=== PATIENT | male | born 1955 | race African-American/Black ===

== ENCOUNTER 2017-12-08 14:26 | Inpatient (IN) | payer MEDICARE ==
--- NOTE | ~2017-12-08 | RHP ---
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 He has got a past medical history of Crohn disease and peripheral neuropathy. Transferred to [facility] from [facility] for higher level of treatment of sepsis and pneumonia, status post right colectomy performed in August 2017. The patient states he has been hospitalized for the past 3 months. He is frail, weak, fatigued, and has decreased breath sounds and wheezes bilaterally. He has right lower quadrant ostomy with dark green liquid output. He has physical signs of malnutrition, temporal wasting, muscle and fat loss around the clavicle, scapula, and triceps. He has got severe protein malnutrition due to decreased appetite and suboptimal oral intake secondary to suspected prior hospitalizations secondary to dysphagia. Modified barium swallow showed signs of tracheal aspiration secondary to severe profound pharyngeal dysphagia. N.p.o. was recommended until a PEG tube could be placed for nutritional needs. Surgery was consulted on 12/06. The PEG tube was placed without difficulty. He has been started on continuous tube feedings of Jevity 1.2 yaneli per 240 cc at 25 cc to be titrated to 10 cc every 6 hours to a goal rate of 55 cc an hour. He is currently at 50 cc an hour and tolerating without difficulty. He was independent with ADLs and mobility prior his hospitalization in August. He has had a prolonged immobility, progressive generalized weakness especially in the lower extremities affecting his tolerance to PT. He is very fatigued with limited flexion and extension of lower extremities. Proximal muscle weakness is noted. He is rgelfawn-ss-oly assist for ADLs, eufjdnll-oh-ekp assist for nsk-lh-eohip and ijq-xx-yuhvg. He is motivated to begin inpatient therapy so he can may be return back to home there in [facility]. Comorbidities include sepsis, pneumonia, dysphagia, hypoglycemia, uncontrolled diabetes, hypotension, Crohn disease, severe protein-calorie malnutrition with dysphagia, anemia of chronic disease, decubitus ulcers, weakness, fatigue, status post colectomy, home O2 dependence, hypertension, functional deficits, and depression. PAST MEDICAL HISTORY: Significant for dysphagia, pneumonia, home O2 dependence, depression. PAST SURGICAL HISTORY: Includes colostomy, gallbladder surgery, and PEG placement. ALLERGIES: No known drug allergies. CURRENT MEDICATIONS: He is on a ferrous sulfate elixir. He is on psyllium fiber 1 packet daily, Protonix 40 mg daily, Marinol 2.5 mg daily, trazodone 50 HISTORY AND PHYSICAL [id number] CRISTINO HOPSON L mg at bedtime, oxycodone 5/325 one tab every 6 hours p.r.n., Zofran p.r.n. nausea and vomiting, triamterene 10 mg b.i.d., Imodium solution as needed. He is on Robitussin per PEG 10 cc every 6 hours, Neurontin 400 mg t.i.d., and Tylenol 325 every 4 hours p.r.n. HABITS: No current alcohol or tobacco use. FAMILY HISTORY: Noncontributory. SOCIAL HISTORY: The patient hopes to return back home and get back to his prior level of functioning. REVIEW OF SYSTEMS: GENERAL: Does complain of weakness and fatigue. HEENT: Denies cold, cough, or congestion. CARDIOVASCULAR: Denies chest pain. PHYSICAL EXAMINATION: VITAL SIGNS: Stable, afebrile. GENERAL: A thin gentleman, in no acute distress upon exam. HEENT: Normocephalic and atraumatic. Mucosa moist. NECK: Supple. No lymphadenopathy. LUNGS: Clear at this time. HEART: Regular rate and rhythm. ABDOMEN: Soft. He does have a PEG and a right lower quadrant drain and ostomy. NEUROLOGIC: Seems intact. LABORATORY DATA: White count is 8.9, H&H of 12 and 38, and platelet count of 251. Sodium is 132, potassium 4.7, BUN and creatinine of 12 and 1.1, and blood sugar was noted to be 97. 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 The patient has potential to make improvement. We will institute the following multidisciplinary therapies including, but not limited to physical, occupational, respiratory, speech, nutritional services, prosthetics and orthotics. Given his complex condition and risk for more complications, rehabilitation services cannot be provided at a low level of care such as a jail facility. PLAN: 1. Admit to [facility] for intensive inpatient therapy to include the following disciplines: A. Physical therapy to improve gait, all transfer skills and bed mobility to a modified independent level. B. Occupational therapy to improve activities of daily living to a modified independent level. C. Case management to assist with discharge planning and placement options. D. Nutrition to assist with nutritional needs. E. Rehabilitation nursing to assist in monitoring the patient's underlying medical conditions and to assist with any type of bowel or bladder management. 2. The patient's current medication and medical care will be continued. 3. The patient will be placed on standard fall precautions. 4. We will watch his blood pressure closely. He has got a history of hypotension. Make sure that his white count remains stable. We see no signs of HISTORY AND PHYSICAL [id number] CRISTINO HOPSON sepsis or aspiration pneumonia. 5. We will follow this patient up on Monday morning or earlier if necessary. TRANSINT:[id number] Voice Confirmation ID: [id number] DOCUMENT ID: [id number] TIFF notes whether there has been none or any medical/functional change since admission: - No change since preadmission screen. TIFF attests patient continues to be appropriate for IRF: - Continues to be appropriate. YAHAIRA GONZÁLES MD at 1739 CC: [id number] DICTATION DATE: 12/09/17 1204 BEDSPREAD FOLDER: 12/09/17 1240 ADM IN [place] [id number] [place] [address]
--- NOTE | ~2017-12-08 | DS ---
PATIENT:CRISTINO HOPSON :53 MEDICAL RECORD: [id number] DISCHARGE SUMMARY ADMISSION DATE: 12/08/17 DISCHARGE DATE: 12/26/17 This is a discharge dated 12/26/2017 from inpatient rehab. PRIMARY DIAGNOSIS: Decreased functional ability and ability to provide activities of daily living secondary to diffuse myopathy, status post prolonged hospitalization with sepsis. SECONDARY DIAGNOSES: 1. Crohn's disease. 2. Protein-calorie malnutrition. 3. Peripheral neuropathy. 4. Status post colostomy. 5. Dysphagia. 6. PEG tube for nutritional support. 7. Chronic hypoxic respiratory failure. 8. Depression. 9. Diabetes. 10. Hypotension. 11. Anemia of chronic disease. 12. Decubitus ulcers. 13. Leukocytosis. 14. Hyponatremia. 15. Hyperkalemia. HOSPITAL COURSE: Full H&P is located elsewhere on the chart on this 62-year-old male who was admitted to inpatient rehab for physical therapy and occupational therapy to improve gait, transfer skills, bed mobility, and activities of daily living to a modified independent level. He was evaluated by PT and OT and their plans of care were followed. He required group home care for observation and assessment, medication administration, as well as wound care of decubitus ulcers. Electrolytes were managed by protocol. Fingerstick blood sugars were monitored throughout his hospital stay with appropriate adjustment in medications as needed. He was on supplemental oxygen to keep sats greater than 90%. He remained on appropriate home medications. He had tube feed via PEG for nutritional support. He was cooperative with therapies with some progress towards goals. He had increasing leukocytosis with positive cultures from his PEG site with Klebsiella pneumoniae and Enterococcus faecium and faecalis. He was started on antibiotics. He had worsening hypotension and was transferred to the acute facility due to change in status and sepsis. DISCHARGE MEDICATIONS: As per discharge medication reconciliation. DISCHARGE DISPOSITION: The patient is discharged to the acute care hospital for higher level of care. He will follow with primary care specialists in that facility and he will continue current nutrition and level of activity. At least 30 minutes was spent in this discharge activity. TRANSINT:[id number] Voice Confirmation ID: [id number] DOCUMENT ID: [id number] Dictated By: JOANNA DOTSON DISCHARGE SUMMARY REPORT [id number] CRISTINO HOPSON I have interviewed/examined the above patient and agree with these documented findings. YAHAIRA GONZÁLES MD at 1139 at 1039 CC: [id number] DICTATION DATE: 01/21/[address] MAGISTRATE: 01/22/18 0342 DIS IN 12/26/17 [place] [id number] [place] [id number]
[~2017-12-08 14:26] MED LIST: ACETAMINOPHEN325 MG PO; CEFTRIAXONE1 G/VIAL IM; CENTRUM SILVER1 TA1 PO; CORTEF10 MG PO; FERROUS SULFAT325 MG PO; LOPERAMIDE HCL2 MG PO; MARINOL2.5 MG PO; METAMUCIL PACKE1 PKT PO; MIDODRINE HCL10 MG PO; MORPHINE 44 MG/1 M1 IV; NEURONTIN800 MG PO; ONDANSETRON4 MG/2 M3 IV; PERCOCET 5-3251 TAB PO; PROTONIX40 MG PO; ROBITUSSIN DM 110 ML PO; TRAZODONE HCL50 MG PO; ZITHROMAX 500M500 MG IV
[2017-12-08 17:22] VITALS: BP 83/53; BMI 14.2
[2017-12-08 19:00] VITALS: BP 70/47
[2017-12-09 05:30] LABS: BASOPHILS 0.2 % (0-2); EOSINOPHILS 0.6 % (0-7); HEMATOCRIT 38.3 % (42.0-54.0); HEMOGLOBIN 12.3 g/dL (13.5-17.5); IMMATURE GRANULOCYTES 0.3 % (0-5); LYMPHOCYTES 17.7 % (15-50); MCH 29.1 pg (26.0-34.0); MCHC 32.1 g/dL (31.0-37.0); MCV 90.8 fL (80.0-100.0); MEAN PLATELET VOLUME 9.5 fL (7.4-10.4); MONOCYTES 7.5 % (2-11); NEUTROPHILS 73.7 % (40-80); PLATELET COUNT 251 10x3/uL (130-400); RBC 4.22 10x6/uL (4.20-6.10); RDW 16.3 % (11.5-14.5); WBC 8.9 10x3/uL (4.8-10.8)
[2017-12-09 05:44] LABS: ANION GAP 14.5 mmol/L (8-16); CALCIUM 8.8 mg/dL (8.5-10.1); CARBON DIOXIDE 18.2 mmol/L (21.0-32.0); CREATININE - SERUM 1.1 mg/dL (0.6-1.3); POTASSIUM - SERUM 4.7 mmol/L (3.5-5.1)
[2017-12-09 08:00] VITALS: BP 070/051
[2017-12-09 12:32] VITALS: BMI 14.2
[2017-12-09 19:35] VITALS: BP 80/57
[2017-12-10 06:35] VITALS: BP 80/57
[2017-12-10 08:54] VITALS: BP 97/60
[2017-12-10 22:44] VITALS: BP 89/62
[2017-12-11 06:26] LABS: BASOPHILS 0.8 % (0-2); EOSINOPHILS 0.9 % (0-7); HEMATOCRIT 41.8 % (42.0-54.0); HEMOGLOBIN 13.6 g/dL (13.5-17.5); IMMATURE GRANULOCYTES 0.2 % (0-5); LYMPHOCYTES 23.1 % (15-50); MCH 29.5 pg (26.0-34.0); MCHC 32.5 g/dL (31.0-37.0); MCV 90.7 fL (80.0-100.0); MEAN PLATELET VOLUME 9.9 fL (7.4-10.4); MONOCYTES 10.6 % (2-11); NEUTROPHILS 64.4 % (40-80); PLATELET COUNT 287 10x3/uL (130-400); RBC 4.61 10x6/uL (4.20-6.10); RDW 16.3 % (11.5-14.5); WBC 8.6 10x3/uL (4.8-10.8)
[2017-12-11 06:59] LABS: ANION GAP 16.9 mmol/L (8-16); CALCIUM 9.3 mg/dL (8.5-10.1); CARBON DIOXIDE 15.8 mmol/L (21.0-32.0); CREATININE - SERUM 1.5 mg/dL (0.6-1.3); POTASSIUM - SERUM 5.7 mmol/L (3.5-5.1)
[2017-12-11 08:00] VITALS: BP 83/56
[2017-12-11 20:00] VITALS: BP 90/60
[2017-12-12 06:17] LABS: CALCIUM 9.7 mg/dL (8.5-10.1); CARBON DIOXIDE 14.5 mmol/L (21.0-32.0); CREATININE - SERUM 1.5 mg/dL (0.6-1.3)
[2017-12-12 06:18] LABS: ANION GAP 17.5 mmol/L (8-16)
[2017-12-12 08:00] VITALS: BP 82/54
[2017-12-12 19:30] VITALS: BP 80/50
[2017-12-13 06:13] LABS: CALCIUM 10.1 mg/dL (8.5-10.1); CREATININE - SERUM 1.5 mg/dL (0.6-1.3); MAGNESIUM - SERUM 1.5 mg/dL (1.8-2.4); PHOSPHOROUS 3.1 mg/dL (2.5-4.9)
[2017-12-13 08:33] VITALS: BP 73/53
[2017-12-13 22:09] VITALS: BP 75/48
[2017-12-14 06:48] LABS: CALCIUM 9.4 mg/dL (8.5-10.1); CARBON DIOXIDE 14.7 mmol/L (21.0-32.0); CREATININE - SERUM 1.3 mg/dL (0.6-1.3)
[2017-12-14 06:49] LABS: ANION GAP 17.1 mmol/L (8-16); POTASSIUM - SERUM 5.8 mmol/L (3.5-5.1)
[2017-12-14 08:00] VITALS: BP 68/46
[2017-12-14 10:57] VITALS: BP 65/46
[2017-12-14 13:17] VITALS: BP 69/40
[2017-12-14 22:05] VITALS: BP 79/55
[2017-12-15 08:33] VITALS: BP 72/42
[2017-12-15 13:11] LABS: ANION GAP 20.2 mmol/L (8-16); CALCIUM 9.8 mg/dL (8.5-10.1); CARBON DIOXIDE 15.7 mmol/L (21.0-32.0); CREATININE - SERUM 1.9 mg/dL (0.6-1.3); POTASSIUM - SERUM 5.9 mmol/L (3.5-5.1)
[2017-12-16 02:36] VITALS: BP 67/44
[2017-12-16 14:26] VITALS: BP 73/49
[2017-12-17 00:10] VITALS: BP 102/60
[2017-12-17 08:35] VITALS: BP 60/40
[2017-12-17 19:00] VITALS: BP 69/47
[2017-12-18 06:06] LABS: BASOPHILS 0.2 % (0-2); EOSINOPHILS 0.3 % (0-7); HEMATOCRIT 34.7 % (42.0-54.0); HEMOGLOBIN 11.8 g/dL (13.5-17.5); IMMATURE GRANULOCYTES 0.5 % (0-5); LYMPHOCYTES 8.4 % (15-50); MCH 29.1 pg (26.0-34.0); MCV 85.7 fL (80.0-100.0); MEAN PLATELET VOLUME 10.2 fL (7.4-10.4); MONOCYTES 9.5 % (2-11); NEUTROPHILS 81.1 % (40-80); PLATELET COUNT 245 10x3/uL (130-400); RBC 4.05 10x6/uL (4.20-6.10); RDW 16.1 % (11.5-14.5); WBC 17.5 10x3/uL (4.8-10.8)
[2017-12-18 06:11] LABS: ANION GAP 18.6 mmol/L (8-16); CALCIUM 8.4 mg/dL (8.5-10.1); CARBON DIOXIDE 15.5 mmol/L (21.0-32.0); CREATININE - SERUM 2.4 mg/dL (0.6-1.3); POTASSIUM - SERUM 4.1 mmol/L (3.5-5.1)
[2017-12-18 08:00] VITALS: BP 144/73; BP 66/42
[2017-12-18 19:10] VITALS: BP 70/44
[2017-12-18 20:24] LABS: APPEARANCE CLEAR (CLEAR); BILIRUBIN NEGATIVE (NEGATIVE); COLOR YELLOW (YELLOW); GLUCOSE NEGATIVE (NEGATIVE); KETONE NEGATIVE (NEGATIVE); NITRITE NEGATIVE (NEGATIVE); PROTEIN TRACE mg/dL (NEGATIVE); SPECIFIC GRAVITY 1.015 (1.005-1.020); UROBILINOGEN NORMAL (NORMAL)
[2017-12-18 20:26] LABS: BACTERIA MODERATE /hpf (NONE SEEN); EPITHELIAL CELLS 0-5 /hpf (0-5); RED CELLS - URINE OCC /hpf (0-5); WHITE CELLS - URINE 25-50 /hpf (0-5); YEAST >1+ WITH HYPHAE /hpf (NONE SEEN)
[2017-12-18 20:27] LABS: HYALINE CAST OCC /lpf (NONE SEEN)
[2017-12-19 08:16] VITALS: BP 81/52
[2017-12-19 19:15] VITALS: BP 66/39
[2017-12-20 08:07] VITALS: BP 72/40
[2017-12-20 18:59] VITALS: BP 137/52; BP 72/48
[2017-12-21 06:17] LABS: BASOPHILS 0.3 % (0-2); EOSINOPHILS 0.8 % (0-7); HEMATOCRIT 31.6 % (42.0-54.0); HEMOGLOBIN 10.4 g/dL (13.5-17.5); IMMATURE GRANULOCYTES 0.4 % (0-5); LYMPHOCYTES 11.5 % (15-50); MCH 29.1 pg (26.0-34.0); MCHC 32.9 g/dL (31.0-37.0); MCV 88.5 fL (80.0-100.0); MEAN PLATELET VOLUME 10.2 fL (7.4-10.4); MONOCYTES 8.7 % (2-11); NEUTROPHILS 78.3 % (40-80); PLATELET COUNT 255 10x3/uL (130-400); RBC 3.57 10x6/uL (4.20-6.10); RDW 16.3 % (11.5-14.5); WBC 14.6 10x3/uL (4.8-10.8)
[2017-12-21 07:17] LABS: CALC OSMOLALITY 262 mosm/kg (275-300); CALCIUM 8.5 mg/dL (8.5-10.1); CHLORIDE - SERUM 104 mmol/L (98-107); GLUCOSE 89 mg/dL (74-106); POTASSIUM - SERUM 3.2 mmol/L (3.5-5.1); SODIUM 130 mmol/L (136-145); UREA NITROGEN 20 mg/dL (7-18); eGFR NON AFRICAN AMERICAN 80 mL/min (90-120)
[2017-12-21 08:00] VITALS: BP 76/52
[2017-12-21 22:09] VITALS: BP 78/48
[2017-12-22 08:29] VITALS: BP 74/50
[2017-12-22 20:00] VITALS: BP 73/51
[2017-12-23 07:53] VITALS: BP 63/42
[2017-12-23 07:55] VITALS: BP 63/72
[2017-12-23 19:45] VITALS: BP 58/40
[2017-12-24 12:16] VITALS: BP 73/55
[2017-12-24 20:30] VITALS: BP 79/58
[2017-12-25 05:21] LABS: HEMATOCRIT 36.2 % (42.0-54.0); HEMOGLOBIN 12.1 g/dL (13.5-17.5); MCH 29.2 pg (26.0-34.0); MCHC 33.4 g/dL (31.0-37.0); MCV 87.4 fL (80.0-100.0); MEAN PLATELET VOLUME 9.9 fL (7.4-10.4); PLATELET COUNT 349 10x3/uL (130-400); RBC 4.14 10x6/uL (4.20-6.10); RDW 15.9 % (11.5-14.5); WBC 21.8 10x3/uL (4.8-10.8)
[2017-12-25 05:24] LABS: EOSINOPHILS 1 % (0-7); LYMPHOCYTES 14 % (15-50); MONOCYTES 11 % (2-11); NEUTROPHILS 68 % (40-80); PLATELET ESTIMATE NORMAL
[2017-12-25 05:34] LABS: ANION GAP 17.7 mmol/L (8-16); CALCIUM 10.1 mg/dL (8.5-10.1); CARBON DIOXIDE 13.2 mmol/L (21.0-32.0); CREATININE - SERUM 1.5 mg/dL (0.6-1.3); POTASSIUM - SERUM 3.9 mmol/L (3.5-5.1)
[2017-12-25] MEDS ORDERED: BACTRIM DS TABL1 TAB PO (08:24)
[2017-12-25 09:57] VITALS: BP 79/55
[2017-12-25 19:00] VITALS: BP 77/52
[2017-12-26 06:47] LABS: BASOPHILS 0 % (0-2); CALCIUM 10.1 mg/dL (8.5-10.1); EOSINOPHILS 0.1 % (0-7); HEMATOCRIT 36.1 % (42.0-54.0); HEMOGLOBIN 12.5 g/dL (13.5-17.5); IMMATURE GRANULOCYTES 0.6 % (0-5); MCH 29.7 pg (26.0-34.0); MCHC 34.6 g/dL (31.0-37.0); MCV 85.7 fL (80.0-100.0); MONOCYTES 5.3 % (2-11); PLATELET COUNT 383 10x3/uL (130-400); POTASSIUM - SERUM 3.9 mmol/L (3.5-5.1); RBC 4.21 10x6/uL (4.20-6.10); RDW 15.6 % (11.5-14.5); WBC 28.7 10x3/uL (4.8-10.8)
[2017-12-26 06:58] LABS: ANION GAP 21.8 mmol/L (8-16); CREATININE - SERUM 2.1 mg/dL (0.6-1.3)
[2017-12-26 06:59] LABS: CARBON DIOXIDE 6.1 mmol/L (21.0-32.0)
[2017-12-26] MEDS ORDERED: THERMOTABS 1 GM1 GM PO (08:01)
[2017-12-26 11:52] VITALS: BP 67/52
== END 2017-12-26 19:24 | disposition short-term general hospital (02) | DRG 91 ==
LOC: D.REHAB 14:26
PROVIDERS: Emergency Medicine
DX: G72.89 Other specified myopathies (principal); A41.9 Sepsis, unspecified organism; J18.9 Pneumonia, unspecified organism; E43 Unspecified severe protein-calorie malnutrition; K50.90 Crohn's disease, unspecified, without complications; R13.13 Dysphagia, pharyngeal phase; E11.649 Type 2 diabetes mellitus with hypoglycemia without coma; I95.9 Hypotension, unspecified; D64.9 Anemia, unspecified; I10 Essential (primary) hypertension; Z99.81 Dependence on supplemental oxygen; R53.1 Weakness; R53.83 Other fatigue; F32.9 Major depressive disorder, single episode, unspecified; L89.90 Pressure ulcer of unspecified site, unspecified stage

== ENCOUNTER 2017-12-26 19:25 | Inpatient (IN) | payer MEDICARE ==
[~2017-12-26] VITALS: Ht 185.4 cm; Wt 45.5 kg
--- NOTE | ~2017-12-26 | PN ---
PATIENT:CRISTINO HOPSON MEDICAL RECORD: [id number] LOCATION:[facility] ADMISSION DATE: 12/26/17 PROGRESS NOTE DATE OF SERVICE: 01/20/2018 PROGRESS NOTE ADDENDUM CHIEF COMPLAINT: Pain. The patient states he is having more abdominal pain. It is band-like pain in the upper abdomen. He states it hurts to breathe. He is tender in the upper abdomen. I am going to obtain a chest x-ray. Yesterday, it looked like the amount of free air was decreasing. I am trying to manage him nonoperatively. If his free air is increasing and/or his condition is deteriorating, then I will be forced into an operation. This likely would not be a laparoscopic washout with placement of drains. White count today is 13.9; however, he does not have a left shift. He is afebrile. Of course, some of the inflammatory response may be blunted due to IV steroids. This is a progress note addendum. For the typed portion of the progress note, please see the chart. Palpation aggravates. Nothing alleviates. He describes these symptoms as severe. For the past medical and surgical history, current medications, allergies, social history as well as family history, please see the chart. REVIEW OF SYSTEMS: Positive for some nausea. He also had some retching. No fever, no chills. Positive for abdominal pain. Positive for dyspnea. Positive for anxiety. Review of systems is negative other than as is described above. PHYSICAL EXAMINATION: GENERAL: The patient appears acutely ill. He also appears chronically ill. VITAL SIGNS: Reviewed. EARS: External ears appear normal. EYES: Extraocular movements are intact. NECK: Trachea is midline. CHEST: No intercostal retractions. PULMONARY: Mildly labored intercostal retractions are present. No stridor. ABDOMEN: As described above. There is peritonitis to percussion in the upper abdomen. EXTREMITIES: Peripheral cyanosis is not present. INTEGUMENT: There is a sacral decubitus ulcer. PSYCHIATRIC: Anxious affect. NEUROLOGIC: Answers questions appropriately. BACK: Mild thoracic kyphosis is present. IMPRESSION: Pneumoperitoneum with an elevated white count, which the patient has had during his hospitalization. No fever. He has some intermittent tachycardia. I am trying to manage his pneumoperitoneum nonoperatively, it is appearing that this is going to be less likely. PLAN: Continue IV antibiotics, serial abdominal examinations, G-tube to gravity PROGRESS NOTE [id number] CRISTINO HOPSON drainage, TPN. I will order some labs for tomorrow as well. TRANSINT:[id number] Voice Confirmation ID: [id number] DOCUMENT ID: [id number] MEMO CISNEROS MD at 1042 CC: [id number] DICTATION DATE: 01/20/18 1324 BLASTING ENTRYMAN: 01/20/18 1353 ADM IN [place] [id number] [place] [id number]
--- NOTE | ~2017-12-26 | CN ---
PATIENT NAME:CRISTINO HOPSON MEDICAL RECORD: [id number] : 53 LOCATION:[facility] ADMIT DATE: 12/26/17 ACCOUNT: [id number] CONSULTING PHYSICIAN: MEMO CISNEROS MD REFERRING PHYSICIAN: JENY VIRAMONTES MD DATE OF CONSULTATION: 01/18/2018 CHIEF COMPLAINT: Pneumoperitoneum. HISTORY OF PRESENT ILLNESS: This is a man who was transferred from [facility] after undergoing a right hemicolectomy for Crohn's disease. The patient has a right lower quadrant ostomy, which is functioning. He was found to have a large pneumoperitoneum today. Despite the large pneumoperitoneum, he really does not appear to be anymore acutely ill than he has been. The patient has been on IV steroids and I wonder if the pneumoperitoneum might not be due to a perforated duodenal ulcer. I have spoken to his primary care team. We are going to place him on a Protonix drip. We are going to see about weaning his steroids down as well. His abdomen is distended and tympanitic. He is tender in the upper abdomen. No pain with percussion and therefore I do not think that he has peritonitis at this time. Of course, the steroids could be blunting any type of inflammatory affect. Palpation aggravates. Nothing alleviates. His symptoms are mild in intensity. This is a consultation note addendum. Dr. Bonilla has seen this patient previously during this hospitalization and has seen him for a different problem. For the typed portion of the consult note, please see the chart. This will include the past medical and surgical history, current medications, allergies, social history as well as family history. REVIEW OF SYSTEMS: No nausea, no vomiting, no fever, no chills. Positive for abdominal pain. No shortness of breath. No chest pain. No headache. The review of systems is negative other than as is described above. PHYSICAL EXAMINATION: GENERAL: The patient does appear acutely ill, also appears chronically ill. VITAL SIGNS: Reviewed. EARS: External ears appear normal. EYES: Extraocular movements are intact. NECK: Trachea is midline. CHEST: No intercostal retractions. PULMONARY: Mildly labored. No stridor. ABDOMEN: As described above. PSYCHIATRIC: Anxious affect. NEUROLOGIC: Nonfocal, no lethargy. The patient answers questions appropriately and moves all extremities well. BACK: Mild thoracic kyphosis. LYMPHATICS: No lymphangitic streaking of the exposed extremities. INTEGUMENT: There is a sacral decubitus ulcer. IMPRESSION: Pneumoperitoneum of uncertain etiology. PLAN: I am going to try to manage this patient's pneumoperitoneum nonoperatively. If he does require an operation, I am not sure he would do well CONSULT REPORT [id number] CRISTINO HOPSON with a very large operation due to generalized weakness and frailty. An operative intervention would likely include a laparoscopy, washout with placement of drains. If a perforated duodenal ulcer is identified, then a Matt patch would be placed as well. The patient may be sicker than he appears and the inflammatory process may be blunted by steroids. I spoke to his primary care team and we are going to see if we can begin tapering down the steroids. I will be performing daily abdominal examinations on him and if he becomes acutely ill, than I will be forced to recommend an operative procedure. TRANSINT:[id number] Voice Confirmation ID: [id number] DOCUMENT ID: [id number] MEMO CISNEROS MD at 1042 CC: [id number] DICTATION DATE: 01/20/18 1336 SAWDUST MACHINE OPERATOR: 01/20/18 1402 ADM IN [facility] [address] [place] [id number]
--- NOTE | ~2017-12-26 | PN ---
PATIENT:CRISTINO HOPSON MEDICAL RECORD: [id number] LOCATION:[facility] ADMISSION DATE: 12/26/17 PROGRESS NOTE DATE OF SERVICE: 01/19/2018 CHIEF COMPLAINT: Pain. I think on today's x-rays, he may have a little less free air than he did yesterday. No nausea. No fever. He is complaining of abdominal pain. He states it is not much better, not much worse than yesterday. This is band-like upper abdominal pain. He is tender in the upper abdomen. No peritonitis to percussion. Palpation aggravates. Nothing alleviates. He describes his symptoms as moderate. This is a progress note addendum. For the typed portion of the progress note, please see the chart. This would include the past medical and surgical history, current medications, allergies, social history as well as family history. REVIEW OF SYSTEMS: No nausea, no vomiting, no fever, no chills. Positive for abdominal pain. No chest pain. The review of systems is negative other than as is described above. PHYSICAL EXAMINATION: GENERAL: The patient does appear acutely ill. Also appears chronically ill. VITAL SIGNS: Reviewed. EARS: External ears appear normal. EYES: Extraocular movements are intact. NECK: Trachea is midline. CHEST: No intercostal retractions. PULMONARY: Nonlabored. No stridor. ABDOMEN: As described above. PSYCHIATRIC: Anxious affect. NEUROLOGIC: Answers questions appropriately. INTEGUMENT: There is a sacral decubitus ulcer. BACK: Mild thoracic kyphosis is present. LYMPHATIC: No lymphangitic streaking of the exposed extremities. IMPRESSION: Pneumoperitoneum. PLAN: I am going to try to continue to manage this nonoperatively with n.p.o., TPN, serial abdominal examinations, and IV antibiotics. TRANSINT:[id number] Voice Confirmation ID: [id number] DOCUMENT ID: [id number] PROGRESS NOTE [id number] CRISTINO HOPSON ROBERT MD at 1042 CC: [id number] DICTATION DATE: 01/20/18 1329 SEWING TEACHER: 01/20/18 1407 ADM IN [place] [id number] [place] [address]
[~2017-12-26 19:25] MED LIST changes: +BACTRIM DS TABL1 TAB PO; +THERMOTABS 1 GM1 GM PO
[2017-12-27 04:00] VITALS: BP 77/50
[2017-12-27 04:37] VITALS: BP 80/53; BMI 14.2
[2017-12-27 12:18] VITALS: BMI 14.2
[2017-12-27 12:50] VITALS: BP 75/49
[2017-12-27 16:13] VITALS: BP 67/41
[2017-12-27 20:00] VITALS: BP 71/45
[2017-12-28] VITALS (43 sets, daily range): BP systolic 64–111; BP diastolic 40–69
[2017-12-28 07:19] LABS: BASOPHILS 0.1 % (0-2); EOSINOPHILS 0 % (0-7); HEMATOCRIT 33.8 % (42.0-54.0); HEMOGLOBIN 11.8 g/dL (13.5-17.5); LYMPHOCYTES 2.3 % (15-50); MCH 29.3 pg (26.0-34.0); MCHC 34.9 g/dL (31.0-37.0); MCV 83.9 fL (80.0-100.0); MONOCYTES 2.9 % (2-11); NEUTROPHILS 93.7 % (40-80); PLATELET COUNT 236 10x3/uL (130-400); RBC 4.03 10x6/uL (4.20-6.10); RDW 15.2 % (11.5-14.5); WBC 47.4 10x3/uL (4.8-10.8)
[2017-12-28 07:30] LABS: CALCIUM 9.4 mg/dL (8.5-10.1); CREATININE - SERUM 3.2 mg/dL (0.6-1.3)
[2017-12-28 07:36] LABS: ANION GAP 19.1 mmol/L (8-16); CARBON DIOXIDE 9.9 mmol/L (21.0-32.0)
[2017-12-28 08:23] LABS: CREATININE - SERUM 3.1 mg/dL (0.6-1.3); POTASSIUM - SERUM 4.4 mmol/L (3.5-5.1)
[2017-12-28 08:27] LABS: ANION GAP 20.4 mmol/L (8-16)
[2017-12-28 10:56] LABS: APPEARANCE TURBID (CLEAR); COLOR YELLOW (YELLOW); SPECIFIC GRAVITY 1.015 (1.005-1.020)
[2017-12-28 10:57] LABS: BILIRUBIN NEGATIVE (NEGATIVE); GLUCOSE NEGATIVE (NEGATIVE); KETONE NEGATIVE (NEGATIVE); NITRITE NEGATIVE (NEGATIVE); PROTEIN 2+ mg/dL (NEGATIVE); UROBILINOGEN NORMAL (NORMAL)
[2017-12-28 11:01] LABS: BACTERIA MODERATE /hpf (NONE SEEN); EPITHELIAL CELLS 0-5 /hpf (0-5); RED CELLS - URINE 0-5 /hpf (0-5); WHITE CELLS - URINE >50 /hpf (0-5)
[2017-12-28 11:02] LABS: GRANULAR CAST OCC /lpf (NONE SEEN); MUCUS <1+ /lpf (NONE SEEN); YEAST >1+ WITH HYPHAE /hpf (NONE SEEN)
[2017-12-29] VITALS (50 sets, daily range): BP systolic 76–131; BP diastolic 50–78
[2017-12-29 07:53] LABS: BASOPHILS 0 % (0-2); EOSINOPHILS 0 % (0-7); HEMATOCRIT 29.9 % (42.0-54.0); HEMOGLOBIN 10.6 g/dL (13.5-17.5); IMMATURE GRANULOCYTES 0.6 % (0-5); LYMPHOCYTES 3.6 % (15-50); MCH 29.2 pg (26.0-34.0); MCHC 35.5 g/dL (31.0-37.0); MCV 82.4 fL (80.0-100.0); MEAN PLATELET VOLUME 8.8 fL (7.4-10.4); MONOCYTES 3.6 % (2-11); NEUTROPHILS 92.2 % (40-80); PLATELET COUNT 250 10x3/uL (130-400); RBC 3.63 10x6/uL (4.20-6.10); RDW 15.1 % (11.5-14.5); WBC 29.8 10x3/uL (4.8-10.8)
[2017-12-29 08:02] LABS: BILIRUBIN - TOTAL 0.48 mg/dL (0.2-1.3); CALCIUM 8.5 mg/dL (8.5-10.1); PROTEIN - SERUM 6.2 g/dL (6.4-8.2)
[2017-12-29 08:05] LABS: CARBON DIOXIDE 36.6 mmol/L (21.0-32.0); CREATININE - SERUM 1.8 mg/dL (0.6-1.3)
[2017-12-29 08:07] LABS: POTASSIUM - SERUM 2.6 mmol/L (3.5-5.1)
[2017-12-30] VITALS (40 sets, daily range): BP systolic 76–132; BP diastolic 59–82
[2017-12-30 03:29] LABS: BASOPHILS 0 % (0-2); EOSINOPHILS 0.2 % (0-7); HEMATOCRIT 30.7 % (42.0-54.0); HEMOGLOBIN 10.5 g/dL (13.5-17.5); IMMATURE GRANULOCYTES 0.4 % (0-5); LYMPHOCYTES 3.5 % (15-50); MCH 29.3 pg (26.0-34.0); MCHC 34.2 g/dL (31.0-37.0); MCV 85.8 fL (80.0-100.0); MEAN PLATELET VOLUME 9.1 fL (7.4-10.4); MONOCYTES 2.6 % (2-11); NEUTROPHILS 93.3 % (40-80); PLATELET COUNT 246 10x3/uL (130-400); RBC 3.58 10x6/uL (4.20-6.10); RDW 15.3 % (11.5-14.5); WBC 32.1 10x3/uL (4.8-10.8)
[2017-12-30 03:30] LABS: ALBUMIN 1.9 g/dL (3.4-5.0); ANION GAP 7.1 mmol/L (8-16); BILIRUBIN - TOTAL 0.3 mg/dL (0.2-1.3); CALCIUM 7.7 mg/dL (8.5-10.1); CARBON DIOXIDE 38.1 mmol/L (21.0-32.0); PROTEIN - SERUM 5.6 g/dL (6.4-8.2)
[2017-12-30 03:33] LABS: CREATININE - SERUM 1.1 mg/dL (0.6-1.3); POTASSIUM - SERUM 4.2 mmol/L (3.5-5.1)
[2017-12-31] VITALS (24 sets, daily range): BP systolic 94–144; BP diastolic 26–96
[2017-12-31 04:24] LABS: BASOPHILS 0 % (0-2); EOSINOPHILS 1.1 % (0-7); HEMATOCRIT 28.6 % (42.0-54.0); HEMOGLOBIN 9.3 g/dL (13.5-17.5); IMMATURE GRANULOCYTES 0.3 % (0-5); LYMPHOCYTES 8.3 % (15-50); MCH 28.9 pg (26.0-34.0); MCHC 32.5 g/dL (31.0-37.0); MCV 88.8 fL (80.0-100.0); MEAN PLATELET VOLUME 8.8 fL (7.4-10.4); MONOCYTES 3.8 % (2-11); NEUTROPHILS 86.5 % (40-80); PLATELET COUNT 213 10x3/uL (130-400); RBC 3.22 10x6/uL (4.20-6.10); RDW 15.8 % (11.5-14.5); WBC 20.1 10x3/uL (4.8-10.8)
[2017-12-31 04:37] LABS: ALBUMIN 1.8 g/dL (3.4-5.0); ALKALINE PHOSPHATASE 89 U/L (46-116); ALT (SGPT) 18 U/L (10-68); BILIRUBIN - TOTAL 0.34 mg/dL (0.2-1.3); CARBON DIOXIDE 35.3 mmol/L (21.0-32.0); CHLORIDE - SERUM 99 mmol/L (98-107); GLUCOSE 127 mg/dL (74-106); PHOSPHOROUS 1.8 mg/dL (2.5-4.9); POTASSIUM - SERUM 4.2 mmol/L (3.5-5.1); PROTEIN - SERUM 5.2 g/dL (6.4-8.2); SODIUM 138 mmol/L (136-145)
[2017-12-31 04:38] LABS: CALC OSMOLALITY 279 mosm/kg (275-300); CREATININE - SERUM 0.8 mg/dL (0.6-1.3); UREA NITROGEN 18 mg/dL (7-18); eGFR NON AFRICAN AMERICAN > 90 mL/min (90-120)
[2018-01-01] VITALS (7 sets, daily range): BP systolic 101–136; BP diastolic 63–90
[2018-01-01 05:07] LABS: BASOPHILS 0.1 % (0-2); EOSINOPHILS 1.2 % (0-7); HEMATOCRIT 28.6 % (42.0-54.0); HEMOGLOBIN 9.1 g/dL (13.5-17.5); IMMATURE GRANULOCYTES 0.5 % (0-5); LYMPHOCYTES 13.3 % (15-50); MCH 28.4 pg (26.0-34.0); MCHC 31.8 g/dL (31.0-37.0); MCV 89.4 fL (80.0-100.0); MEAN PLATELET VOLUME 8.8 fL (7.4-10.4); MONOCYTES 5.5 % (2-11); NEUTROPHILS 79.4 % (40-80); PLATELET COUNT 213 10x3/uL (130-400); RDW 15.5 % (11.5-14.5); WBC 15.5 10x3/uL (4.8-10.8)
[2018-01-01 05:24] LABS: ALBUMIN 1.7 g/dL (3.4-5.0); ALKALINE PHOSPHATASE 79 U/L (46-116); ALT (SGPT) 19 U/L (10-68); BILIRUBIN - TOTAL 0.32 mg/dL (0.2-1.3); CALC OSMOLALITY 266 mosm/kg (275-300); CARBON DIOXIDE 30.6 mmol/L (21.0-32.0); CHLORIDE - SERUM 96 mmol/L (98-107); CREATININE - SERUM 0.8 mg/dL (0.6-1.3); GLUCOSE 121 mg/dL (74-106); PHOSPHOROUS 1.6 mg/dL (2.5-4.9); PROTEIN - SERUM 5.6 g/dL (6.4-8.2); SODIUM 133 mmol/L (136-145); eGFR NON AFRICAN AMERICAN > 90 mL/min (90-120)
[2018-01-01 05:33] LABS: UREA NITROGEN 13 mg/dL (7-18)
[2018-01-02 04:23] LABS: BASOPHILS 0.1 % (0-2); IMMATURE GRANULOCYTES 0.5 % (0-5); LYMPHOCYTES 19.6 % (15-50); MCH 28.9 pg (26.0-34.0); MCHC 32.1 g/dL (31.0-37.0); MEAN PLATELET VOLUME 8.8 fL (7.4-10.4); MONOCYTES 4.8 % (2-11); PLATELET COUNT 191 10x3/uL (130-400); RBC 3.11 10x6/uL (4.20-6.10); RDW 15.7 % (11.5-14.5)
[2018-01-02 04:25] LABS: WBC 11.6 10x3/uL (4.8-10.8)
[2018-01-02 04:37] LABS: ALBUMIN 1.6 g/dL (3.4-5.0); ALKALINE PHOSPHATASE 63 U/L (46-116); ALT (SGPT) 17 U/L (10-68); BILIRUBIN - TOTAL 0.29 mg/dL (0.2-1.3); CALC OSMOLALITY 261 mosm/kg (275-300); CALCIUM 7.5 mg/dL (8.5-10.1); CARBON DIOXIDE 29.3 mmol/L (21.0-32.0); CHLORIDE - SERUM 95 mmol/L (98-107); CREATININE - SERUM 0.7 mg/dL (0.6-1.3); GLUCOSE 109 mg/dL (74-106); PHOSPHOROUS 1.9 mg/dL (2.5-4.9); POTASSIUM - SERUM 3.8 mmol/L (3.5-5.1); PROTEIN - SERUM 5.1 g/dL (6.4-8.2); SODIUM 130 mmol/L (136-145); UREA NITROGEN 12 mg/dL (7-18); eGFR NON AFRICAN AMERICAN > 90 mL/min (90-120)
[2018-01-02 06:13] VITALS: BP 88/59
[2018-01-02 23:07] VITALS: BP 97/63
[2018-01-03 05:23] VITALS: BP 100/65
[2018-01-03 05:41] LABS: BASOPHILS 0.1 % (0-2); EOSINOPHILS 2.4 % (0-7); HEMATOCRIT 28.6 % (42.0-54.0); IMMATURE GRANULOCYTES 0.2 % (0-5); LYMPHOCYTES 23.9 % (15-50); MCH 28.4 pg (26.0-34.0); MCHC 31.5 g/dL (31.0-37.0); MCV 90.2 fL (80.0-100.0); MEAN PLATELET VOLUME 8.9 fL (7.4-10.4); NEUTROPHILS 67.4 % (40-80); PLATELET COUNT 180 10x3/uL (130-400); RBC 3.17 10x6/uL (4.20-6.10); RDW 15.3 % (11.5-14.5)
[2018-01-03 06:11] LABS: ALBUMIN 1.6 g/dL (3.4-5.0); ALKALINE PHOSPHATASE 57 U/L (46-116); ALT (SGPT) 19 U/L (10-68); CALC OSMOLALITY 268 mosm/kg (275-300); CALCIUM 7.1 mg/dL (8.5-10.1); CHLORIDE - SERUM 101 mmol/L (98-107); GLUCOSE 113 mg/dL (74-106); PHOSPHOROUS 2.3 mg/dL (2.5-4.9); POTASSIUM - SERUM 3.9 mmol/L (3.5-5.1); PROTEIN - SERUM 5.3 g/dL (6.4-8.2); SODIUM 134 mmol/L (136-145); UREA NITROGEN 13 mg/dL (7-18)
[2018-01-03 06:13] LABS: CREATININE - SERUM 0.5 mg/dL (0.6-1.3); eGFR NON AFRICAN AMERICAN > 90 mL/min (90-120)
[2018-01-03 06:18] LABS: WBC 8.5 10x3/uL (4.8-10.8)
[2018-01-03 08:05] VITALS: BP 85/55
[2018-01-03 12:35] VITALS: BP 119/66
[2018-01-03 14:14] VITALS: Ht 185.4 cm; Wt 45.5 kg
[2018-01-03 16:14] VITALS: BP 106/63
[2018-01-03 22:09] VITALS: BP 104/67
[2018-01-04 01:29] VITALS: BP 103/64
[2018-01-04 04:11] LABS: BASOPHILS 0.2 % (0-2); EOSINOPHILS 1.2 % (0-7); HEMATOCRIT 27.1 % (42.0-54.0); HEMOGLOBIN 8.6 g/dL (13.5-17.5); IMMATURE GRANULOCYTES 0.3 % (0-5); LYMPHOCYTES 12.7 % (15-50); MCH 28.7 pg (26.0-34.0); MCHC 31.7 g/dL (31.0-37.0); MCV 90.3 fL (80.0-100.0); MEAN PLATELET VOLUME 8.9 fL (7.4-10.4); MONOCYTES 2.1 % (2-11); NEUTROPHILS 83.5 % (40-80); RDW 15.3 % (11.5-14.5)
[2018-01-04 04:18] LABS: PLATELET COUNT 135 10x3/uL (130-400); WBC 12.8 10x3/uL (4.8-10.8)
[2018-01-04 04:22] LABS: ALBUMIN 1.6 g/dL (3.4-5.0); ALKALINE PHOSPHATASE 54 U/L (46-116); ALT (SGPT) 15 U/L (10-68); BILIRUBIN - TOTAL 0.25 mg/dL (0.2-1.3); CALC OSMOLALITY 265 mosm/kg (275-300); CALCIUM 7.2 mg/dL (8.5-10.1); CARBON DIOXIDE 24.8 mmol/L (21.0-32.0); CHLORIDE - SERUM 96 mmol/L (98-107); CREATININE - SERUM 0.6 mg/dL (0.6-1.3); GLUCOSE 147 mg/dL (74-106); POTASSIUM - SERUM 3.6 mmol/L (3.5-5.1); PROTEIN - SERUM 4.9 g/dL (6.4-8.2); SODIUM 131 mmol/L (136-145); UREA NITROGEN 12 mg/dL (7-18); eGFR NON AFRICAN AMERICAN > 90 mL/min (90-120)
[2018-01-04 04:33] VITALS: BP 106/68
[2018-01-04 07:57] VITALS: BP 79/58
[2018-01-04 13:07] VITALS: BP 90/60
[2018-01-04 16:18] VITALS: BP 70/50
[2018-01-04 20:00] VITALS: BP 83/51
[2018-01-05 04:00] VITALS: BP 95/57
[2018-01-05 06:50] LABS: BASOPHILS 0.2 % (0-2); EOSINOPHILS 0.9 % (0-7); HEMATOCRIT 25.2 % (42.0-54.0); HEMOGLOBIN 8.1 g/dL (13.5-17.5); IMMATURE GRANULOCYTES 0.2 % (0-5); LYMPHOCYTES 15.6 % (15-50); MCHC 32.1 g/dL (31.0-37.0); MCV 90.3 fL (80.0-100.0); MEAN PLATELET VOLUME 9.1 fL (7.4-10.4); MONOCYTES 5.3 % (2-11); NEUTROPHILS 77.8 % (40-80); RBC 2.79 10x6/uL (4.20-6.10); RDW 15.2 % (11.5-14.5); WBC 10.1 10x3/uL (4.8-10.8)
[2018-01-05 06:51] LABS: PLATELET COUNT 98 10x3/uL (130-400)
[2018-01-05 07:08] LABS: PLATELET ESTIMATE DECREASED
[2018-01-05 07:10] LABS: ALBUMIN 1.7 g/dL (3.4-5.0); ALKALINE PHOSPHATASE 54 U/L (46-116); ALT (SGPT) 18 U/L (10-68); CALC OSMOLALITY 264 mosm/kg (275-300); CALCIUM 7.4 mg/dL (8.5-10.1); CARBON DIOXIDE 27.1 mmol/L (21.0-32.0); CHLORIDE - SERUM 99 mmol/L (98-107); CREATININE - SERUM 0.6 mg/dL (0.6-1.3); GLUCOSE 111 mg/dL (74-106); POTASSIUM - SERUM 3.9 mmol/L (3.5-5.1); PROTEIN - SERUM 5.4 g/dL (6.4-8.2); SODIUM 132 mmol/L (136-145); UREA NITROGEN 11 mg/dL (7-18); eGFR NON AFRICAN AMERICAN > 90 mL/min (90-120)
[2018-01-05 07:44] VITALS: BP 78/51
[2018-01-05 12:21] VITALS: BP 78/59
[2018-01-05 15:55] VITALS: BP 88/58
[2018-01-05 20:00] VITALS: BP 106/68
[2018-01-06 03:56] LABS: BASOPHILS 0.2 % (0-2); EOSINOPHILS 1.6 % (0-7); HEMATOCRIT 26.9 % (42.0-54.0); HEMOGLOBIN 8.4 g/dL (13.5-17.5); IMMATURE GRANULOCYTES 0.2 % (0-5); LYMPHOCYTES 18.1 % (15-50); MCH 28.4 pg (26.0-34.0); MCHC 31.2 g/dL (31.0-37.0); MCV 90.9 fL (80.0-100.0); MEAN PLATELET VOLUME 9.3 fL (7.4-10.4); MONOCYTES 5.6 % (2-11); NEUTROPHILS 74.3 % (40-80); PLATELET COUNT 105 10x3/uL (130-400); RBC 2.96 10x6/uL (4.20-6.10); RDW 15.4 % (11.5-14.5)
[2018-01-06 04:00] VITALS: BP 84/56
[2018-01-06 04:04] LABS: ALBUMIN 1.8 g/dL (3.4-5.0); ALKALINE PHOSPHATASE 64 U/L (46-116); ALT (SGPT) 18 U/L (10-68); BILIRUBIN - TOTAL 0.29 mg/dL (0.2-1.3); CALC OSMOLALITY 266 mosm/kg (275-300); CALCIUM 8.2 mg/dL (8.5-10.1); CARBON DIOXIDE 29.4 mmol/L (21.0-32.0); CHLORIDE - SERUM 99 mmol/L (98-107); CREATININE - SERUM 0.6 mg/dL (0.6-1.3); GLUCOSE 96 mg/dL (74-106); POTASSIUM - SERUM 4.2 mmol/L (3.5-5.1); PROTEIN - SERUM 5.8 g/dL (6.4-8.2); SODIUM 134 mmol/L (136-145); UREA NITROGEN 9 mg/dL (7-18); eGFR NON AFRICAN AMERICAN > 90 mL/min (90-120)
[2018-01-06 08:15] VITALS: BP 71/44
[2018-01-06 13:04] VITALS: BP 85/58
[2018-01-06 15:58] VITALS: BP 87/58
[2018-01-06 21:57] VITALS: BP 85/59
[2018-01-07 00:57] VITALS: BP 96/64
[2018-01-07 05:35] LABS: BASOPHILS 0.1 % (0-2); EOSINOPHILS 0.8 % (0-7); HEMATOCRIT 23.9 % (42.0-54.0); IMMATURE GRANULOCYTES 0.2 % (0-5); LYMPHOCYTES 14.3 % (15-50); MCH 28.4 pg (26.0-34.0); MCHC 31.4 g/dL (31.0-37.0); MCV 90.5 fL (80.0-100.0); MEAN PLATELET VOLUME 9.6 fL (7.4-10.4); NEUTROPHILS 74.6 % (40-80); PLATELET COUNT 88 10x3/uL (130-400); RBC 2.64 10x6/uL (4.20-6.10); RDW 15.3 % (11.5-14.5); WBC 9.2 10x3/uL (4.8-10.8)
[2018-01-07 05:44] LABS: HEMOGLOBIN 7.5 g/dL (13.5-17.5)
[2018-01-07 05:45] VITALS: BP 98/64
[2018-01-07 06:03] LABS: ALBUMIN 1.7 g/dL (3.4-5.0); ALKALINE PHOSPHATASE 64 U/L (46-116); BILIRUBIN - TOTAL 0.22 mg/dL (0.2-1.3); CALC OSMOLALITY 264 mosm/kg (275-300); CALCIUM 7.8 mg/dL (8.5-10.1); CARBON DIOXIDE 28.7 mmol/L (21.0-32.0); CHLORIDE - SERUM 99 mmol/L (98-107); CREATININE - SERUM 0.5 mg/dL (0.6-1.3); GLUCOSE 107 mg/dL (74-106); PROTEIN - SERUM 5.6 g/dL (6.4-8.2); SODIUM 133 mmol/L (136-145); UREA NITROGEN 9 mg/dL (7-18); eGFR NON AFRICAN AMERICAN > 90 mL/min (90-120)
[2018-01-07 06:11] LABS: ALT (SGPT) 24 U/L (10-68)
[2018-01-07 09:16] VITALS: BP 85/54
[2018-01-07 12:08] VITALS: BP 96/58
[2018-01-07 16:07] VITALS: BP 95/60
[2018-01-07 23:18] VITALS: BP 94/57
[2018-01-08 04:00] VITALS: BP 102/64
[2018-01-08 05:15] LABS: BASOPHILS 0.2 % (0-2); EOSINOPHILS 1.6 % (0-7); HEMATOCRIT 27.6 % (42.0-54.0); HEMOGLOBIN 8.8 g/dL (13.5-17.5); IMMATURE GRANULOCYTES 0.2 % (0-5); LYMPHOCYTES 19.4 % (15-50); MCH 28.8 pg (26.0-34.0); MCHC 31.9 g/dL (31.0-37.0); MCV 90.2 fL (80.0-100.0); MEAN PLATELET VOLUME 10.8 fL (7.4-10.4); NEUTROPHILS 64.6 % (40-80); RBC 3.06 10x6/uL (4.20-6.10); RDW 15.7 % (11.5-14.5); WBC 9.4 10x3/uL (4.8-10.8)
[2018-01-08 05:26] LABS: PLATELET COUNT 118 10x3/uL (130-400)
[2018-01-08 05:35] LABS: ALBUMIN 1.7 g/dL (3.4-5.0); ALKALINE PHOSPHATASE 70 U/L (46-116); BILIRUBIN - TOTAL 0.35 mg/dL (0.2-1.3); CALC OSMOLALITY 269 mosm/kg (275-300); CALCIUM 7.9 mg/dL (8.5-10.1); CARBON DIOXIDE 26.9 mmol/L (21.0-32.0); CHLORIDE - SERUM 103 mmol/L (98-107); CREATININE - SERUM 0.4 mg/dL (0.6-1.3); GLUCOSE 98 mg/dL (74-106); POTASSIUM - SERUM 3.9 mmol/L (3.5-5.1); PROTEIN - SERUM 5.7 g/dL (6.4-8.2); SODIUM 136 mmol/L (136-145); UREA NITROGEN 8 mg/dL (7-18); eGFR NON AFRICAN AMERICAN > 90 mL/min (90-120)
[2018-01-08 05:39] LABS: ALT (SGPT) 34 U/L (10-68)
[2018-01-08 08:25] VITALS: BP 87/58
[2018-01-08 14:08] VITALS: BP 88/54
[2018-01-08 16:47] VITALS: BP 92/54
[2018-01-08 20:00] VITALS: BP 99/59
[2018-01-09 04:00] VITALS: BP 97/64
[2018-01-09 04:33] LABS: BASOPHILS 0.3 % (0-2); EOSINOPHILS 1.2 % (0-7); HEMOGLOBIN 8.5 g/dL (13.5-17.5); IMMATURE GRANULOCYTES 0.1 % (0-5); LYMPHOCYTES 12.5 % (15-50); MCH 28.5 pg (26.0-34.0); MCHC 31.5 g/dL (31.0-37.0); MCV 90.6 fL (80.0-100.0); MEAN PLATELET VOLUME 10.2 fL (7.4-10.4); MONOCYTES 11.2 % (2-11); NEUTROPHILS 74.7 % (40-80); RBC 2.98 10x6/uL (4.20-6.10); RDW 15.4 % (11.5-14.5); WBC 10.1 10x3/uL (4.8-10.8)
[2018-01-09 04:41] LABS: PLATELET COUNT 167 10x3/uL (130-400)
[2018-01-09 04:43] LABS: INR 1.33 (0.85-1.17); PROTIME 16.1 SECONDS (11.6-15.0)
[2018-01-09 05:03] LABS: % SATURATION 18 % (15-55); IRON 18 ug/dl (35-150); TOTAL IRON BIND CAPACITY 98 ug/dl (260-445); UNSAT IRON BIND CAPACITY 80 ug/dl (150-375)
[2018-01-09 05:28] LABS: ALBUMIN 1.6 g/dL (3.4-5.0); ALKALINE PHOSPHATASE 76 U/L (46-116); CALC OSMOLALITY 269 mosm/kg (275-300); CALCIUM 7.6 mg/dL (8.5-10.1); CARBON DIOXIDE 22.9 mmol/L (21.0-32.0); CHLORIDE - SERUM 105 mmol/L (98-107); CHOL - HDL RATIO 3.3 ratio (2.3-4.9); CHOLESTEROL, TOTAL 95 mg/dL (0-200); CREATININE - SERUM 0.3 mg/dL (0.6-1.3); GLUCOSE 103 mg/dL (74-106); HDL CHOLESTEROL 29 mg/dL (32-96); LDL CHOLESTEROL 57 mg/dL (0-100); POTASSIUM - SERUM 3.8 mmol/L (3.5-5.1); PRE-ALBUMIN 12.8 mg/dL (18.0-35.7); PROTEIN - SERUM 5.5 g/dL (6.4-8.2); SODIUM 136 mmol/L (136-145); TRIGLYCERIDE 47 mg/dL (30-200); UREA NITROGEN 8 mg/dL (7-18); eGFR NON AFRICAN AMERICAN > 90 mL/min (90-120)
[2018-01-09 05:44] LABS: ALT (SGPT) 85 U/L (10-68); FERRITIN 2662 ng/mL (3-244)
[2018-01-09 09:39] VITALS: BP 95/60
[2018-01-09 12:02] VITALS: BP 103/65
[2018-01-09 16:17] VITALS: BP 111/70
[2018-01-09 20:00] VITALS: BP 102/66
[2018-01-10 04:00] VITALS: BP 90/60
[2018-01-10 05:22] LABS: C-REACTIVE PROTEIN 4.3 mg/dL (0.0-0.9); T4 THYROXIN - FREE 0.8 ng/dL (0.76-1.46); THYROID STIMULATING HORMONE 1.27 uIU/mL (0.36-3.74)
[2018-01-10 05:51] LABS: ERYTHROCYTE SEDIMENTATION RATE 56 mm/hr (0-20)
[2018-01-10 08:08] VITALS: BP 102/64
[2018-01-10 08:19] LABS: FOLATE (FOLIC ACID) - SERUM 16.5 ng/mL (>3.0)
[2018-01-10 12:53] VITALS: BP 127/78
[2018-01-10 15:54] VITALS: BP 119/69
[2018-01-10 20:00] VITALS: BP 84/50
[2018-01-11] VITALS: BP 92/59
[2018-01-11 04:00] VITALS: BP 91/58
[2018-01-11 07:55] VITALS: BP 93/60
[2018-01-11 12:30] VITALS: BP 97/59
[2018-01-11 15:46] VITALS: BP 93/55
[2018-01-11 20:00] VITALS: BP 95/62
[2018-01-12] VITALS: BP 126/70
[2018-01-12 04:00] VITALS: BP 120/69
[2018-01-12 08:08] VITALS: BP 99/62
[2018-01-12 12:57] VITALS: BP 103/64
[2018-01-12 22:00] VITALS: BP 120/75
[2018-01-13 00:32] VITALS: BP 124/72
[2018-01-13 04:00] VITALS: BP 105/66
[2018-01-13 08:03] VITALS: BP 112/72
[2018-01-13 12:16] VITALS: BP 101/67
[2018-01-13 16:14] VITALS: BP 96/62
[2018-01-13 20:00] VITALS: BP 103/67
[2018-01-14] VITALS: BP 124/66
[2018-01-14 04:00] VITALS: BP 109/55
[2018-01-14 08:06] VITALS: BP 101/60
[2018-01-14 12:12] VITALS: BP 106/64
[2018-01-14 16:27] VITALS: BP 106/62
[2018-01-14 20:00] VITALS: BP 116/66
[2018-01-15] VITALS (7 sets, daily range): BP systolic 93–166; BP diastolic 50–77
[2018-01-15 11:29] LABS: BASOPHILS 0.1 % (0-2); EOSINOPHILS 2.1 % (0-7); HEMATOCRIT 28.3 % (42.0-54.0); HEMOGLOBIN 9.2 g/dL (13.5-17.5); IMMATURE GRANULOCYTES 0.3 % (0-5); LYMPHOCYTES 25.7 % (15-50); MCHC 32.5 g/dL (31.0-37.0); MCV 89.3 fL (80.0-100.0); MEAN PLATELET VOLUME 9.4 fL (7.4-10.4); MONOCYTES 11.8 % (2-11); RBC 3.17 10x6/uL (4.20-6.10); RDW 15.5 % (11.5-14.5); WBC 8.7 10x3/uL (4.8-10.8)
[2018-01-15 11:31] LABS: PLATELET COUNT 396 10x3/uL (130-400)
[2018-01-15 11:49] LABS: ALKALINE PHOSPHATASE 74 U/L (46-116); ALT (SGPT) 53 U/L (10-68); CALC OSMOLALITY 276 mosm/kg (275-300); CALCIUM 8.2 mg/dL (8.5-10.1); CARBON DIOXIDE 21.3 mmol/L (21.0-32.0); CHLORIDE - SERUM 108 mmol/L (98-107); CREATININE - SERUM 0.6 mg/dL (0.6-1.3); GLUCOSE 101 mg/dL (74-106); PROTEIN - SERUM 5.7 g/dL (6.4-8.2); SODIUM 139 mmol/L (136-145); UREA NITROGEN 10 mg/dL (7-18); eGFR NON AFRICAN AMERICAN > 90 mL/min (90-120)
[2018-01-16 04:00] VITALS: BP 116/70
[2018-01-16 06:01] LABS: BASOPHILS 0.1 % (0-2); HEMATOCRIT 27.7 % (42.0-54.0); IMMATURE GRANULOCYTES 0.3 % (0-5); LYMPHOCYTES 26.1 % (15-50); MCHC 32.5 g/dL (31.0-37.0); MCV 89.4 fL (80.0-100.0); MEAN PLATELET VOLUME 9.7 fL (7.4-10.4); MONOCYTES 11.3 % (2-11); NEUTROPHILS 61.2 % (40-80); PLATELET COUNT 389 10x3/uL (130-400); RDW 15.5 % (11.5-14.5); WBC 7.1 10x3/uL (4.8-10.8)
[2018-01-16 06:32] LABS: ALKALINE PHOSPHATASE 73 U/L (46-116); ALT (SGPT) 53 U/L (10-68); CALC OSMOLALITY 275 mosm/kg (275-300); CALCIUM 8.1 mg/dL (8.5-10.1); CARBON DIOXIDE 19.3 mmol/L (21.0-32.0); CHLORIDE - SERUM 108 mmol/L (98-107); CREATININE - SERUM 0.6 mg/dL (0.6-1.3); GLUCOSE 88 mg/dL (74-106); PROTEIN - SERUM 5.7 g/dL (6.4-8.2); SODIUM 139 mmol/L (136-145); UREA NITROGEN 11 mg/dL (7-18); eGFR NON AFRICAN AMERICAN > 90 mL/min (90-120)
[2018-01-16 08:55] VITALS: BP 109/68
[2018-01-16 10:38] LABS: MAGNESIUM - SERUM 1.2 mg/dL (1.8-2.4); PHOSPHOROUS 2.7 mg/dL (2.5-4.9)
[2018-01-16 13:05] VITALS: BP 97/67
[2018-01-16 16:00] VITALS: BP 92/59
[2018-01-16 20:00] VITALS: BP 98/63
[2018-01-17] VITALS: BP 119/95
[2018-01-17 04:00] VITALS: BP 88/54
[2018-01-17 05:11] LABS: BASOPHILS 0.1 % (0-2); EOSINOPHILS 0.9 % (0-7); HEMATOCRIT 28.9 % (42.0-54.0); HEMOGLOBIN 9.2 g/dL (13.5-17.5); IMMATURE GRANULOCYTES 0.2 % (0-5); LYMPHOCYTES 24.6 % (15-50); MCH 28.7 pg (26.0-34.0); MCHC 31.8 g/dL (31.0-37.0); MEAN PLATELET VOLUME 9.6 fL (7.4-10.4); MONOCYTES 8.6 % (2-11); NEUTROPHILS 65.6 % (40-80); PLATELET COUNT 444 10x3/uL (130-400); RBC 3.21 10x6/uL (4.20-6.10); RDW 15.8 % (11.5-14.5); WBC 8.1 10x3/uL (4.8-10.8)
[2018-01-17 05:41] LABS: ALBUMIN 2.1 g/dL (3.4-5.0); ALKALINE PHOSPHATASE 70 U/L (46-116); ALT (SGPT) 54 U/L (10-68); CALC OSMOLALITY 276 mosm/kg (275-300); CALCIUM 8.2 mg/dL (8.5-10.1); CARBON DIOXIDE 19.7 mmol/L (21.0-32.0); CHLORIDE - SERUM 108 mmol/L (98-107); CREATININE - SERUM 0.6 mg/dL (0.6-1.3); GLUCOSE 100 mg/dL (74-106); POTASSIUM - SERUM 3.1 mmol/L (3.5-5.1); PROTEIN - SERUM 5.8 g/dL (6.4-8.2); SODIUM 139 mmol/L (136-145); UREA NITROGEN 10 mg/dL (7-18); eGFR NON AFRICAN AMERICAN > 90 mL/min (90-120)
[2018-01-17 08:49] VITALS: BP 92/58
[2018-01-17 12:56] VITALS: BP 112/75
[2018-01-17 16:23] VITALS: BP 103/68
[2018-01-17 20:00] VITALS: BP 109/63
[2018-01-18 04:00] VITALS: BP 93/51
[2018-01-18 05:01] LABS: BASOPHILS 0.1 % (0-2); EOSINOPHILS 0.3 % (0-7); HEMATOCRIT 29.2 % (42.0-54.0); HEMOGLOBIN 9.4 g/dL (13.5-17.5); IMMATURE GRANULOCYTES 0.3 % (0-5); LYMPHOCYTES 10.8 % (15-50); MCH 28.7 pg (26.0-34.0); MCHC 32.2 g/dL (31.0-37.0); MCV 89.3 fL (80.0-100.0); MONOCYTES 3.9 % (2-11); NEUTROPHILS 84.6 % (40-80); PLATELET COUNT 384 10x3/uL (130-400); RBC 3.27 10x6/uL (4.20-6.10); RDW 15.7 % (11.5-14.5)
[2018-01-18 05:19] LABS: ALBUMIN 1.9 g/dL (3.4-5.0); ALKALINE PHOSPHATASE 62 U/L (46-116); CALC OSMOLALITY 271 mosm/kg (275-300); CALCIUM 7.7 mg/dL (8.5-10.1); CARBON DIOXIDE 20.4 mmol/L (21.0-32.0); CHLORIDE - SERUM 107 mmol/L (98-107); CREATININE - SERUM 0.6 mg/dL (0.6-1.3); GLUCOSE 96 mg/dL (74-106); POTASSIUM - SERUM 3.6 mmol/L (3.5-5.1); PROTEIN - SERUM 5.3 g/dL (6.4-8.2); SODIUM 137 mmol/L (136-145); UREA NITROGEN 8 mg/dL (7-18); eGFR NON AFRICAN AMERICAN > 90 mL/min (90-120)
[2018-01-18 05:28] LABS: ALT (SGPT) 37 U/L (10-68)
[2018-01-18 05:31] LABS: WBC 15.1 10x3/uL (4.8-10.8)
[2018-01-18 07:58] VITALS: BP 64/41
[2018-01-18 12:17] VITALS: BP 88/60
[2018-01-18 16:08] VITALS: BP 102/65
[2018-01-18 20:00] VITALS: BP 90/55
[2018-01-18 23:52] VITALS: BP 90/61
[2018-01-19 04:00] VITALS: BP 88/53
[2018-01-19 05:27] LABS: BASOPHILS 0.1 % (0-2); HEMOGLOBIN 8.4 g/dL (13.5-17.5); IMMATURE GRANULOCYTES 0.4 % (0-5); MCH 28.9 pg (26.0-34.0); MCHC 32.3 g/dL (31.0-37.0); MCV 89.3 fL (80.0-100.0); MEAN PLATELET VOLUME 10.1 fL (7.4-10.4); MONOCYTES 9.4 % (2-11); NEUTROPHILS 76.1 % (40-80); PLATELET COUNT 367 10x3/uL (130-400); RBC 2.91 10x6/uL (4.20-6.10); RDW 16.3 % (11.5-14.5); WBC 13.5 10x3/uL (4.8-10.8)
[2018-01-19 05:38] LABS: ALBUMIN 1.9 g/dL (3.4-5.0); ALKALINE PHOSPHATASE 56 U/L (46-116); ALT (SGPT) 33 U/L (10-68); BILIRUBIN - TOTAL 0.37 mg/dL (0.2-1.3); CALC OSMOLALITY 269 mosm/kg (275-300); CALCIUM 8.1 mg/dL (8.5-10.1); CARBON DIOXIDE 21.1 mmol/L (21.0-32.0); CHLORIDE - SERUM 105 mmol/L (98-107); CREATININE - SERUM 0.7 mg/dL (0.6-1.3); GLUCOSE 74 mg/dL (74-106); POTASSIUM - SERUM 3.1 mmol/L (3.5-5.1); PROTEIN - SERUM 5.4 g/dL (6.4-8.2); SODIUM 136 mmol/L (136-145); UREA NITROGEN 11 mg/dL (7-18); eGFR NON AFRICAN AMERICAN > 90 mL/min (90-120)
[2018-01-19 08:04] VITALS: BP 80/54
[2018-01-19 14:11] LABS: PHOSPHOROUS 2.3 mg/dL (2.5-4.9)
[2018-01-19 16:16] VITALS: BP 97/66
[2018-01-19 20:00] VITALS: BP 102/68
[2018-01-19 23:30] VITALS: BP 86/54
[2018-01-20 04:00] VITALS: BP 80/55
[2018-01-20 04:55] LABS: BASOPHILS 0.1 % (0-2); EOSINOPHILS 2.2 % (0-7); HEMATOCRIT 24.8 % (42.0-54.0); HEMOGLOBIN 8.1 g/dL (13.5-17.5); IMMATURE GRANULOCYTES 0.4 % (0-5); LYMPHOCYTES 13.8 % (15-50); MCHC 32.7 g/dL (31.0-37.0); MCV 88.9 fL (80.0-100.0); MEAN PLATELET VOLUME 9.4 fL (7.4-10.4); MONOCYTES 8.6 % (2-11); NEUTROPHILS 74.9 % (40-80); PLATELET COUNT 318 10x3/uL (130-400); RBC 2.79 10x6/uL (4.20-6.10); RDW 16.1 % (11.5-14.5); WBC 13.9 10x3/uL (4.8-10.8)
[2018-01-20 05:14] LABS: ALKALINE PHOSPHATASE 50 U/L (46-116); BILIRUBIN - TOTAL 0.24 mg/dL (0.2-1.3); CALCIUM 8.1 mg/dL (8.5-10.1); CARBON DIOXIDE 22.6 mmol/L (21.0-32.0); CHLORIDE - SERUM 105 mmol/L (98-107); CREATININE - SERUM 0.7 mg/dL (0.6-1.3); PROTEIN - SERUM 5.5 g/dL (6.4-8.2); SODIUM 136 mmol/L (136-145); eGFR NON AFRICAN AMERICAN > 90 mL/min (90-120)
[2018-01-20 05:19] LABS: ALT (SGPT) 22 U/L (10-68); CALC OSMOLALITY 274 mosm/kg (275-300); GLUCOSE 137 mg/dL (74-106); MAGNESIUM - SERUM 2.2 mg/dL (1.8-2.4); PHOSPHOROUS 3.8 mg/dL (2.5-4.9); UREA NITROGEN 14 mg/dL (7-18)
[2018-01-20 10:56] VITALS: BP 97/61
[2018-01-20 15:03] VITALS: BP 108/69
[2018-01-20 16:52] VITALS: BP 108/70
[2018-01-20 20:00] VITALS: BP 110/70
[2018-01-21] VITALS: BP 118/72
[2018-01-21 04:00] VITALS: BP 98/59
[2018-01-21 06:16] LABS: BASOPHILS 0 % (0-2); EOSINOPHILS 0.1 % (0-7); HEMOGLOBIN 8.7 g/dL (13.5-17.5); IMMATURE GRANULOCYTES 0.3 % (0-5); LYMPHOCYTES 12.9 % (15-50); MCH 28.9 pg (26.0-34.0); MCHC 32.2 g/dL (31.0-37.0); MCV 89.7 fL (80.0-100.0); MEAN PLATELET VOLUME 9.8 fL (7.4-10.4); MONOCYTES 6.6 % (2-11); NEUTROPHILS 80.1 % (40-80); PLATELET COUNT 351 10x3/uL (130-400); RBC 3.01 10x6/uL (4.20-6.10); RDW 16.3 % (11.5-14.5)
[2018-01-21 06:18] LABS: WBC 7.9 10x3/uL (4.8-10.8)
[2018-01-21 06:31] LABS: ALKALINE PHOSPHATASE 50 U/L (46-116); ALT (SGPT) 27 U/L (10-68); BILIRUBIN - TOTAL 0.23 mg/dL (0.2-1.3); CALC OSMOLALITY 271 mosm/kg (275-300); CALCIUM 8.1 mg/dL (8.5-10.1); CARBON DIOXIDE 22.2 mmol/L (21.0-32.0); CHLORIDE - SERUM 106 mmol/L (98-107); CREATININE - SERUM 0.6 mg/dL (0.6-1.3); GLUCOSE 117 mg/dL (74-106); MAGNESIUM - SERUM 2.1 mg/dL (1.8-2.4); PHOSPHOROUS 2.9 mg/dL (2.5-4.9); POTASSIUM - SERUM 4.3 mmol/L (3.5-5.1); PROTEIN - SERUM 5.7 g/dL (6.4-8.2); SODIUM 136 mmol/L (136-145); UREA NITROGEN 11 mg/dL (7-18); eGFR NON AFRICAN AMERICAN > 90 mL/min (90-120)
[2018-01-21 08:07] VITALS: BP 109/65
[2018-01-21 11:57] VITALS: BP 118/65
[2018-01-21 15:29] VITALS: BP 112/66
[2018-01-21 20:55] VITALS: BP 121/76
[2018-01-22 05:40] VITALS: BP 109/70
[2018-01-22 06:00] LABS: BASOPHILS 0.1 % (0-2); EOSINOPHILS 2.3 % (0-7); HEMATOCRIT 25.6 % (42.0-54.0); HEMOGLOBIN 8.2 g/dL (13.5-17.5); IMMATURE GRANULOCYTES 0.2 % (0-5); MCH 28.7 pg (26.0-34.0); MCV 89.5 fL (80.0-100.0); MEAN PLATELET VOLUME 9.8 fL (7.4-10.4); MONOCYTES 12.6 % (2-11); NEUTROPHILS 69.8 % (40-80); PLATELET COUNT 359 10x3/uL (130-400); RBC 2.86 10x6/uL (4.20-6.10); RDW 15.9 % (11.5-14.5)
[2018-01-22 06:01] LABS: WBC 10.3 10x3/uL (4.8-10.8)
[2018-01-22 06:38] LABS: ALBUMIN 1.8 g/dL (3.4-5.0); ALKALINE PHOSPHATASE 48 U/L (46-116); ALT (SGPT) 28 U/L (10-68); CARBON DIOXIDE 23.6 mmol/L (21.0-32.0); CHLORIDE - SERUM 106 mmol/L (98-107); GLUCOSE 100 mg/dL (74-106); MAGNESIUM - SERUM 1.7 mg/dL (1.8-2.4); PHOSPHOROUS 3.1 mg/dL (2.5-4.9); POTASSIUM - SERUM 3.9 mmol/L (3.5-5.1); PROTEIN - SERUM 5.4 g/dL (6.4-8.2); SODIUM 137 mmol/L (136-145)
[2018-01-22 06:42] LABS: CALC OSMOLALITY 271 mosm/kg (275-300); CREATININE - SERUM 0.4 mg/dL (0.6-1.3); UREA NITROGEN 8 mg/dL (7-18); eGFR NON AFRICAN AMERICAN > 90 mL/min (90-120)
[2018-01-22 17:17] VITALS: BP 110/60
[2018-01-22 20:00] VITALS: BP 90/62
[2018-01-23 04:00] VITALS: BP 94/60
[2018-01-23 05:31] LABS: BASOPHILS 0.1 % (0-2); EOSINOPHILS 2.9 % (0-7); HEMATOCRIT 27.2 % (42.0-54.0); HEMOGLOBIN 8.7 g/dL (13.5-17.5); IMMATURE GRANULOCYTES 0.4 % (0-5); LYMPHOCYTES 11.4 % (15-50); MCH 28.3 pg (26.0-34.0); MCV 88.6 fL (80.0-100.0); MEAN PLATELET VOLUME 9.9 fL (7.4-10.4); MONOCYTES 13.1 % (2-11); NEUTROPHILS 72.1 % (40-80); PLATELET COUNT 358 10x3/uL (130-400); RBC 3.07 10x6/uL (4.20-6.10); RDW 15.8 % (11.5-14.5)
[2018-01-23 05:33] LABS: WBC 13.8 10x3/uL (4.8-10.8)
[2018-01-23 05:40] LABS: ALBUMIN 1.8 g/dL (3.4-5.0); ALKALINE PHOSPHATASE 51 U/L (46-116); ALT (SGPT) 24 U/L (10-68); BILIRUBIN - TOTAL 0.36 mg/dL (0.2-1.3); CALC OSMOLALITY 268 mosm/kg (275-300); CALCIUM 7.6 mg/dL (8.5-10.1); CARBON DIOXIDE 26.6 mmol/L (21.0-32.0); CHLORIDE - SERUM 102 mmol/L (98-107); CREATININE - SERUM 0.4 mg/dL (0.6-1.3); GLUCOSE 93 mg/dL (74-106); MAGNESIUM - SERUM 1.6 mg/dL (1.8-2.4); POTASSIUM - SERUM 4.2 mmol/L (3.5-5.1); PROTEIN - SERUM 5.4 g/dL (6.4-8.2); SODIUM 135 mmol/L (136-145); UREA NITROGEN 9 mg/dL (7-18); eGFR NON AFRICAN AMERICAN > 90 mL/min (90-120)
[2018-01-23 08:28] VITALS: BP 106/66
[2018-01-23 13:09] VITALS: BP 104/60
[2018-01-23 16:03] VITALS: BP 110/58
[2018-01-23 20:00] VITALS: BP 87/57
[2018-01-24 04:00] VITALS: BP 85/58
[2018-01-24 05:23] LABS: BASOPHILS 0.2 % (0-2); EOSINOPHILS 3.8 % (0-7); HEMATOCRIT 25.9 % (42.0-54.0); HEMOGLOBIN 8.3 g/dL (13.5-17.5); IMMATURE GRANULOCYTES 0.8 % (0-5); LYMPHOCYTES 11.5 % (15-50); MCH 28.7 pg (26.0-34.0); MCV 89.6 fL (80.0-100.0); MEAN PLATELET VOLUME 9.4 fL (7.4-10.4); MONOCYTES 11.6 % (2-11); NEUTROPHILS 72.1 % (40-80); PLATELET COUNT 293 10x3/uL (130-400); RBC 2.89 10x6/uL (4.20-6.10); RDW 15.8 % (11.5-14.5); WBC 12.3 10x3/uL (4.8-10.8)
[2018-01-24 06:00] LABS: ALBUMIN 1.8 g/dL (3.4-5.0); ALKALINE PHOSPHATASE 51 U/L (46-116); ALT (SGPT) 22 U/L (10-68); BILIRUBIN - TOTAL 0.32 mg/dL (0.2-1.3); CALC OSMOLALITY 273 mosm/kg (275-300); CARBON DIOXIDE 27.2 mmol/L (21.0-32.0); CHLORIDE - SERUM 104 mmol/L (98-107); CREATININE - SERUM 0.4 mg/dL (0.6-1.3); GLUCOSE 111 mg/dL (74-106); MAGNESIUM - SERUM 1.8 mg/dL (1.8-2.4); PHOSPHOROUS 3.7 mg/dL (2.5-4.9); POTASSIUM - SERUM 3.8 mmol/L (3.5-5.1); PROTEIN - SERUM 5.4 g/dL (6.4-8.2); SODIUM 137 mmol/L (136-145); UREA NITROGEN 9 mg/dL (7-18); eGFR NON AFRICAN AMERICAN > 90 mL/min (90-120)
[2018-01-24 08:24] VITALS: BP 80/50
[2018-01-24 12:44] VITALS: BP 102/65
[2018-01-24 16:05] VITALS: BP 96/67
[2018-01-24 20:23] VITALS: BP 100/58
[2018-01-25 00:19] VITALS: BP 95/60
[2018-01-25 03:38] VITALS: BP 91/57
[2018-01-25 04:48] LABS: BASOPHILS 0.3 % (0-2); EOSINOPHILS 3.9 % (0-7); HEMATOCRIT 25.9 % (42.0-54.0); HEMOGLOBIN 8.5 g/dL (13.5-17.5); IMMATURE GRANULOCYTES 0.6 % (0-5); LYMPHOCYTES 13.1 % (15-50); MCH 29.5 pg (26.0-34.0); MCHC 32.8 g/dL (31.0-37.0); MCV 89.9 fL (80.0-100.0); MEAN PLATELET VOLUME 9.7 fL (7.4-10.4); MONOCYTES 13.1 % (2-11); PLATELET COUNT 303 10x3/uL (130-400); RBC 2.88 10x6/uL (4.20-6.10); RDW 15.8 % (11.5-14.5); WBC 11.1 10x3/uL (4.8-10.8)
[2018-01-25 05:01] LABS: ALBUMIN 1.8 g/dL (3.4-5.0); ALKALINE PHOSPHATASE 54 U/L (46-116); CALC OSMOLALITY 269 mosm/kg (275-300); CARBON DIOXIDE 28.4 mmol/L (21.0-32.0); CHLORIDE - SERUM 103 mmol/L (98-107); CREATININE - SERUM 0.4 mg/dL (0.6-1.3); GLUCOSE 112 mg/dL (74-106); MAGNESIUM - SERUM 1.8 mg/dL (1.8-2.4); PHOSPHOROUS 3.7 mg/dL (2.5-4.9); PROTEIN - SERUM 5.5 g/dL (6.4-8.2); SODIUM 135 mmol/L (136-145); UREA NITROGEN 11 mg/dL (7-18); eGFR NON AFRICAN AMERICAN > 90 mL/min (90-120)
[2018-01-25 05:02] LABS: POTASSIUM - SERUM 4.4 mmol/L (3.5-5.1)
[2018-01-25 05:03] LABS: ALT (SGPT) 16 U/L (10-68)
[2018-01-25 08:11] VITALS: BP 90/63
[2018-01-25 12:46] VITALS: BP 82/60
[2018-01-25 15:54] VITALS: BP 107/65
[2018-01-25 19:49] VITALS: BP 84/52
[2018-01-26 00:39] VITALS: BP 92/58
[2018-01-26 04:16] LABS: CALCIUM 8.4 mg/dL (8.5-10.1); CARBON DIOXIDE 30.8 mmol/L (21.0-32.0); CREATININE - SERUM 0.5 mg/dL (0.6-1.3); GLUCOSE 105 mg/dL (74-106); PHOSPHOROUS 4.1 mg/dL (2.5-4.9); UREA NITROGEN 12 mg/dL (7-18); eGFR NON AFRICAN AMERICAN > 90 mL/min (90-120)
[2018-01-26 04:31] VITALS: BP 84/51
[2018-01-26 04:34] LABS: CALC OSMOLALITY 269 mosm/kg (275-300); CHLORIDE - SERUM 100 mmol/L (98-107); POTASSIUM - SERUM 4.6 mmol/L (3.5-5.1); SODIUM 135 mmol/L (136-145)
[2018-01-26 07:24] LABS: BASOPHILS 0.4 % (0-2); EOSINOPHILS 3.6 % (0-7); HEMATOCRIT 27.7 % (42.0-54.0); HEMOGLOBIN 8.8 g/dL (13.5-17.5); IMMATURE GRANULOCYTES 0.5 % (0-5); LYMPHOCYTES 17.7 % (15-50); MCH 29.2 pg (26.0-34.0); MCHC 31.8 g/dL (31.0-37.0); MEAN PLATELET VOLUME 9.6 fL (7.4-10.4); MONOCYTES 10.9 % (2-11); NEUTROPHILS 66.9 % (40-80); PLATELET COUNT 335 10x3/uL (130-400); RBC 3.01 10x6/uL (4.20-6.10); WBC 13.3 10x3/uL (4.8-10.8)
[2018-01-26 08:40] VITALS: BP 119/54
[2018-01-26 18:02] VITALS: BP 92/58
[2018-01-26 19:41] VITALS: BP 102/64
[2018-01-27] VITALS (7 sets, daily range): BP systolic 78–89; BP diastolic 45–56
[2018-01-27 05:49] LABS: CALC OSMOLALITY 265 mosm/kg (275-300); CALCIUM 8.4 mg/dL (8.5-10.1); CHLORIDE - SERUM 98 mmol/L (98-107); CREATININE - SERUM 0.5 mg/dL (0.6-1.3); GLUCOSE 104 mg/dL (74-106); POTASSIUM - SERUM 4.9 mmol/L (3.5-5.1); SODIUM 132 mmol/L (136-145); UREA NITROGEN 14 mg/dL (7-18); eGFR NON AFRICAN AMERICAN > 90 mL/min (90-120)
[2018-01-27 05:50] LABS: PHOSPHOROUS 5.2 mg/dL (2.5-4.9)
[2018-01-28 04:00] VITALS: BP 67/42
[2018-01-28 05:57] LABS: CALC OSMOLALITY 269 mosm/kg (275-300); CALCIUM 8.9 mg/dL (8.5-10.1); CARBON DIOXIDE 27.6 mmol/L (21.0-32.0); CHLORIDE - SERUM 101 mmol/L (98-107); CREATININE - SERUM 0.6 mg/dL (0.6-1.3); GLUCOSE 107 mg/dL (74-106); MAGNESIUM - SERUM 2.1 mg/dL (1.8-2.4); PHOSPHOROUS 4.5 mg/dL (2.5-4.9); POTASSIUM - SERUM 4.9 mmol/L (3.5-5.1); SODIUM 134 mmol/L (136-145); UREA NITROGEN 17 mg/dL (7-18); eGFR NON AFRICAN AMERICAN > 90 mL/min (90-120)
[2018-01-28 08:37] VITALS: BP 130/68
[2018-01-28 11:39] VITALS: BP 80/50
[2018-01-28 15:40] VITALS: BP 88/49
[2018-01-28 20:41] VITALS: BP 92/53
[2018-01-29] VITALS (8 sets, daily range): BP systolic 74–97; BP diastolic 40–58
[2018-01-29 05:32] LABS: CALC OSMOLALITY 268 mosm/kg (275-300); CALCIUM 8.9 mg/dL (8.5-10.1); CARBON DIOXIDE 26.2 mmol/L (21.0-32.0); CHLORIDE - SERUM 102 mmol/L (98-107); CREATININE - SERUM 0.6 mg/dL (0.6-1.3); GLUCOSE 92 mg/dL (74-106); MAGNESIUM - SERUM 1.8 mg/dL (1.8-2.4); PHOSPHOROUS 3.6 mg/dL (2.5-4.9); POTASSIUM - SERUM 4.9 mmol/L (3.5-5.1); SODIUM 134 mmol/L (136-145); UREA NITROGEN 15 mg/dL (7-18); eGFR NON AFRICAN AMERICAN > 90 mL/min (90-120)
[2018-01-29 10:12] LABS: BASOPHILS 0.4 % (0-2); EOSINOPHILS 1.6 % (0-7); HEMATOCRIT 27.3 % (42.0-54.0); HEMOGLOBIN 8.5 g/dL (13.5-17.5); IMMATURE GRANULOCYTES 0.4 % (0-5); LYMPHOCYTES 16.4 % (15-50); MCH 29.2 pg (26.0-34.0); MCHC 31.1 g/dL (31.0-37.0); MCV 93.8 fL (80.0-100.0); MEAN PLATELET VOLUME 9.8 fL (7.4-10.4); MONOCYTES 9.8 % (2-11); NEUTROPHILS 71.4 % (40-80); PLATELET COUNT 278 10x3/uL (130-400); RBC 2.91 10x6/uL (4.20-6.10); RDW 15.4 % (11.5-14.5); WBC 13.6 10x3/uL (4.8-10.8)
[2018-01-29 10:19] LABS: ALBUMIN 2.3 g/dL (3.4-5.0); ALKALINE PHOSPHATASE 92 U/L (46-116); ALT (SGPT) 90 U/L (10-68); CALC OSMOLALITY 270 mosm/kg (275-300); CALCIUM 9.1 mg/dL (8.5-10.1); CARBON DIOXIDE 23.5 mmol/L (21.0-32.0); CHLORIDE - SERUM 102 mmol/L (98-107); CREATININE - SERUM 0.6 mg/dL (0.6-1.3); GLUCOSE 92 mg/dL (74-106); POTASSIUM - SERUM 5.1 mmol/L (3.5-5.1); SODIUM 135 mmol/L (136-145); UREA NITROGEN 15 mg/dL (7-18); eGFR NON AFRICAN AMERICAN > 90 mL/min (90-120)
[2018-01-30 04:00] VITALS: BP 84/52
[2018-01-30 05:19] LABS: BASOPHILS 0.6 % (0-2); EOSINOPHILS 2.1 % (0-7); HEMATOCRIT 25.5 % (42.0-54.0); IMMATURE GRANULOCYTES 0.4 % (0-5); LYMPHOCYTES 22.6 % (15-50); MCH 28.9 pg (26.0-34.0); MCHC 31.4 g/dL (31.0-37.0); MCV 92.1 fL (80.0-100.0); MEAN PLATELET VOLUME 9.2 fL (7.4-10.4); MONOCYTES 10.5 % (2-11); NEUTROPHILS 63.8 % (40-80); PLATELET COUNT 222 10x3/uL (130-400); RBC 2.77 10x6/uL (4.20-6.10); RDW 15.1 % (11.5-14.5); WBC 12.6 10x3/uL (4.8-10.8)
[2018-01-30 05:43] LABS: ALBUMIN 2.2 g/dL (3.4-5.0); ALKALINE PHOSPHATASE 86 U/L (46-116); ALT (SGPT) 104 U/L (10-68); BILIRUBIN - TOTAL 0.15 mg/dL (0.2-1.3); CALC OSMOLALITY 267 mosm/kg (275-300); CALCIUM 7.8 mg/dL (8.5-10.1); CARBON DIOXIDE 25.3 mmol/L (21.0-32.0); CHLORIDE - SERUM 102 mmol/L (98-107); CREATININE - SERUM 0.5 mg/dL (0.6-1.3); GLUCOSE 79 mg/dL (74-106); POTASSIUM - SERUM 4.8 mmol/L (3.5-5.1); PROTEIN - SERUM 6.5 g/dL (6.4-8.2); SODIUM 134 mmol/L (136-145); UREA NITROGEN 15 mg/dL (7-18); eGFR NON AFRICAN AMERICAN > 90 mL/min (90-120)
[2018-01-30 08:39] VITALS: BP 130/76
[2018-01-30 13:12] VITALS: BP 83/52
[2018-01-30] MEDS ORDERED: ZINC-220220 MG PEG (13:23)
[2018-01-30] MEDS ORDERED: ROBITUSSIN DM 110 ML PEG (13:23)
[2018-01-30] MEDS ORDERED: PREDNISONE5 MG PO (13:24)
[2018-01-30] MEDS ORDERED: SANTYL30 GM TOPICAL (13:24)
[2018-01-30] MEDS ORDERED: PROTONIX FOR OR40 MG PT (13:25)
[2018-01-30] MEDS ORDERED: Delzicol PT (13:25)
[2018-01-30] MEDS ORDERED: PERCOCET 5-3251 TAB PO ×2 (14:20→14:21)
== END 2018-01-30 17:33 | DRG 919 ==
LOC: D.MS 19:25 → D.ICU 19:25 → D.MS 01-01 01:31
PROVIDERS: Family Medicine; Family Medicine Adult Medicine; Internal Medicine Gastroenterology; Internal Medicine Nephrology; Surgery
PROC: 02H633Z Insertion of Infusion Device into Right Atrium, Percutaneous Approach (ICD-10-PCS; principal; 2018-01-19)
PROC: B244ZZZ Ultrasonography of Right Heart (ICD-10-PCS; 2018-01-19)
DX: T85.79XA Infection and inflammatory reaction due to other internal prosthetic devices, implants and grafts, initial encounter (principal); A41.81 Sepsis due to Enterococcus; R65.21 Severe sepsis with septic shock; G93.40 Encephalopathy, unspecified; E43 Unspecified severe protein-calorie malnutrition; J18.9 Pneumonia, unspecified organism; K94.22 Gastrostomy infection; N17.9 Acute kidney failure, unspecified; E87.1 Hypo-osmolality and hyponatremia; Z68.1 Body mass index [BMI] 19.9 or less, adult; K50.90 Crohn's disease, unspecified, without complications; E87.2 Acidosis; K56.7 Ileus, unspecified; K66.8 Other specified disorders of peritoneum; Y83.8 Other surgical procedures as the cause of abnormal reaction of the patient, or of later complication, without mention of misadventure at the time of the procedure; N18.3 Chronic kidney disease, stage 3 (moderate); E83.42 Hypomagnesemia; I95.89 Other hypotension; L89.152 Pressure ulcer of sacral region, stage 2; D63.8 Anemia in other chronic diseases classified elsewhere; I12.9 Hypertensive chronic kidney disease with stage 1 through stage 4 chronic kidney disease, or unspecified chronic kidney disease; G62.9 Polyneuropathy, unspecified; R13.12 Dysphagia, oropharyngeal phase; M21.372 Foot drop, left foot